=== PATIENT | female | born 1995 | race Two or more races ===

== ENCOUNTER 2018-01-04 19:34 | Emergency (ER) | payer SELFPAY ==
[2018-01-04 20:12] LABS: Bilirubin Negative (Negative); Blood, Urine Trace (Negative); Clarity CLOUDY (Clear); Glucose, Urine (Dipstick) Negative (Negative); Leukocyte Large (Negative); Nitrite Negative (Negative); Protein, Urine (Dipstick) Negative (Neg-Trace)
[2018-01-04 20:15] LABS: Bacteria/HPF Rare-Few HPF (None Seen); Hyaline Casts/LPF 0-3 HYALINE CAST LPF (0-3 Hyaline); Pathc Cast-AUWi Flag 0.58 (0-2.49); RBC/HPF 0-3 HPF (0-3)
[2018-01-04 20:18] LABS: Yeast-AUWi Flag 74.7 (0-25.0)
[2018-01-04 20:20] LABS: #Basophils 0.1 thou/uL (0.0-0.2); #Eosinphils 0.1 thou/uL (0.0-0.7); #Lymphocytes 2.2 thou/uL (1.20-3.40); #Monocytes 0.7 thou/uL (0.11-0.59); #Neutrophils 4.8 thou/uL (1.40-6.50); %Basophils 0.6 % (0.0-1.0); %Eosinophils 0.9 % (0.0-10.0); %Lymphocytes 28.5 % (28.0-48.0); %Monocytes 8.8 % (0.0-4.0); %Neutrophils 61.1 % (31.0-61.0); Hemoglobin 12.8 g/dL (12.0-16.0); Mean Corpuscular HGB CONC 34.2 g/dL (32.0-36.0); Mean Corpuscular Hemoglobin 29.6 pg (25.0-35.0); Mean Corpuscular Volume 86.6 fL (78.0-98.0); Mean Platelet Volume 5.8 fL (7.4-10.4); Platelet Count 325 thou/uL (130-400); RBC Distribution Width 11.4 % (11.5-14.5); Red Blood Cell (RBC) Count 4.32 mill/uL (4.00-5.20); White Blood Cell (WBC) Count 7.8 thou/uL (4.8-10.8)
[2018-01-04 20:30] LABS: Yeast-All Forms 1+ HPF (None Seen)
--- NOTE | 2018-01-04 22:35 | ULT ---
PELVIC ULTRASOUND: 01/04/18 Endovaginal ultrasound of pelvis performed. INDICATION: Left pelvic pain. Spotting. Positive test. The uterus has a normal appearance. No evidence of intrauterine gestation. The endometrial stripe is upper normal measured at 1.5 cm. Both ovaries are identified and appear unremarkable with normal appe aring follicles. Color doppler and spectral analysis demonstrates blood flow to both ovaries. There is an elongated echogenic structure in the left adnexa adjacent to the ovary which could repres ent prominent fallopian tube or mass. This measures 1 to 2 cm. There is free fluid in the cul-de-sac with low level echoes which could represent blood. IMPRESSION: Abnormal echogenicity in the left adnexa with free fluid/blood in the cul-de-sac. Ectopic i s the primary concern and should be excluded. POS: [facility]
--- NOTE | 2018-01-05 05:16 | CON ---
DATE OF ENCOUNTER: 01/04/2018 REFERRING PHYSICIAN: Dr. Tl Recio. CHIEF COMPLAINT: Vaginal bleeding and abdominal pain. HISTORY OF PRESENT ILLNESS: Patient is a 22-year-old female who presented to the emergency room toda y with an intrauterine at approximately 6 weeks by LMP with vaginal spotting. She reports earlier today, she has some left-sided pelvic pain that spontaneously resolved prior to presenting to the emergency room. Patient reports that her bleeding was most noticeable with wiping. Patient den ies fever, headache, chest pain, shortness of breath, nausea, vomiting, diarrhea, constipation. She denies any new rashes, hip problems, knee problems, muscle weakness. She denies urinary urgency or f requency or discharge or odor vaginally. PAST MEDICAL HISTORY: Negative. PAST SURGICAL HISTORY: Negative. SOCIAL HISTORY: Denies alcohol or drug use. She does report history of smoking about 1 pack every 3 days but quit smoking when she found out she was . ALLERGIES: No known drug allergies. MEDICATIONS: None. REVIEW OF SYSTEMS: Per HPI. PHYSICAL EXAMINATION: VITAL SIGNS: Blood pressure is 100/59, pulse of 86, respiratory rate 18, temperature 98.7, satting 9 9% on room air. GENERAL: She appears to be in no acute distress. She is alert and oriented, cooperative and pleasan t to interact with. HEAD: Normocephalic, atraumatic. LUNGS: Clear to auscultation bilaterally. HEART: Regular rate and rhythm. ABDOMEN: Soft, nontender to light and deep palpation. EXTREMITIES: Nontender, nonedematous. PELVIC: Per ER physician reports a moderate amount of junk yellow-green discharge, friable vaginal t issue, closed cervix. A small amount of dark blood. No cervical or adnexal tenderness. LABORATORY DATA: Patient has a white blood cell count of 7.8, hemoglobin 12.8, hematocrit 37.4, plat elets 325,000, quant was 364. UA shows trace blood, negative ketone, negative nitrite, large leukocy te esterase, negative red blood cells, 11-20 white blood cells, 4-6 squamous cells, rare to few bacte jeffrey, and 1+ yeast. REFUELER-3 shows positive for Gardnerella and for Hiwot, negative for Trichomonas. Ultrasound reports abnormal echogenicity in the left adnexa with free fluid or blood in the cul-de-sa c, ectopic pregnancies primary concern should be excluded. ASSESSMENT AND PLAN: Patient is a 22-year-old female G1, P0 with an intrauterine approxima tely 6 weeks' gestation with a quant of 352, presenting for vaginal spotting. Patient does have a ye ast infection and bacterial vaginosis with minimal bleeding in the vaginal vault and friable vaginal tissue. Patient is not having any concerning symptomatology, i.e., no abdominal or pelvic pain. Her hemoglobin is stable. Findings have been shared with the patient and patient has been recommended t o return on Saturday evening for a repeat quantitative HCG or to return sooner should she begin to expe rience abdominal pain. At this point, it is unclear whether the patient has normal or abnormal pregn pastor whether she has an ectopic or intrauterine or has a threatened miscarriage. We stressed the importance of close followup and for the importance of repeat labs on Saturday. Latisha starr has expressed understanding. She understands the possibility of having ectopic and with an absence of symptoms, patient is comfortable going home with the current plan.
[2018-01-06 00:02] LABS: Chlamydia by PCR Not Detected (NotDetected); GC by PCR Not Detected (NotDetected)
== END 2018-01-04 23:18 | disposition home or self-care (01) ==
LOC: ERS 19:34
DX: O20.0 Threatened abortion (principal); Z3A.01 Less than 8 weeks gestation of pregnancy
CPT/HCPCS: 36415; 76856; 81003; 81015; 84702; 85025; 86900; 86901; 87480; 87491; 87510; 87591; 87660

== ENCOUNTER 2018-01-06 19:28 | Emergency (ER) | payer SELFPAY | END 2018-01-06 21:57 | disposition home or self-care (01) | LOC: ERS 19:28 | DX: O03.4 Incomplete spontaneous abortion without complication (principal); Z71.6 Tobacco abuse counseling; Z87.891 Personal history of nicotine dependence; Z79.899 Other long term (current) drug therapy | CPT/HCPCS: 36415; 84702; 99406 ==

== ENCOUNTER 2018-06-26 13:04 | Outpatient (CLI) | payer OTHER ==
--- NOTE | 2018-06-26 15:35 | ULT ---
OBSTETRIC SONOGRAM TRANSABDOMINAL IMAGING WITH DUPLEX EVALUATION: HISTORY: First-trimester . evaluation. FINDINGS: Intrauterine gestational sac contains a yolk sac and pole. Measurements correlate with 10 week s 4 days gestational age giving an estimated date of delivery of 01/18/2019. Urinary bladder is unrema rkable. Minimal free fluid in the dependent portion of the pelvis. A 3.0 cm dominant follicle arise s from the left ovary. Right ovary not well visualized. Good color and spectral Doppler flow in the left ovary. heart motion demonstrated at 178 b.p.m. IMPRESSION: Single viable intrauterine gestation with estimated gestational age based on today's sonogram of 11 w eeks 0 days. POS: [facility]
== END 2018-06-26 13:05 | disposition home or self-care (01) ==
LOC: SCSULT 13:04
PROVIDERS: ATTEND Obstetrics & Gynecology
DX: Z34.01 Encounter for supervision of normal first pregnancy, first trimester (principal); Z3A.11 11 weeks gestation of pregnancy
CPT/HCPCS: 76856; 93976

== ENCOUNTER 2018-09-03 08:30 | Outpatient (CLI) | payer OTHER ==
--- NOTE | 2018-09-03 10:58 | ULT ---
OB ULTRASOUND: HISTORY: anatomy. FINDINGS: A single live intrauterine gestation is seen with measurements corresponding to an estimated gestatio nal age of 21 weeks 1 day and PHIL at 01/13/2019. The estimated weight measures 384 gm or 14 ounc es. This corresponds to a 46th percentile by Hadlock criteria. measurements are as follows: BPD 5.18 cm, 21 weeks 5 days HC 18.50 cm, 20 weeks 6 days AC 16.06 cm, 21 weeks 2 days FL 3.34 cm, 20 weeks 4 days The heart rate measures 138 b.p.m. Placenta is anteriorly located without evidence of placenta previa. LISE measures 11.4 cm. A 3-vessel cord, cord insertion, kidneys, bladder, stomach, 4-chamber heart, lateral ventricles , cerebellum, spine, lips/nose, upper and lower extremities are visualized. No definite anomal ies are seen. The cervical length measures 3.8 cm. IMPRESSION: Single live intrauterine of 21 weeks 1 day estimated gestational age and estimated date of delivery at 01/13/2019. POS: [facility]
== END 2018-09-03 08:31 | disposition home or self-care (01) ==
LOC: BICULT 08:30
PROVIDERS: ATTEND Nurse Practitioner
DX: Z34.02 Encounter for supervision of normal first pregnancy, second trimester (principal); Z3A.21 21 weeks gestation of pregnancy
CPT/HCPCS: 76805

== ENCOUNTER 2018-11-28 07:52 | Outpatient (CLI) | payer OTHER ==
--- NOTE | 2018-11-28 10:22 | ULT ---
OBSTETRICAL ULTRASOUND WITH UMBILICAL ARTERY DOPPLER: TECHNIQUE: Butcher scale, color flow, and spectral Doppler images were obtained of the pelvis, intrauterine gestati on, and umbilical artery. COMPARISON: Prior study dated 09/03/2018. FINDINGS: There is a single live intrauterine gestation in cephalic presentation. The placenta is anterior wit hout previa. The cardiac activity is noted at 131 b.p.m. LISE noted at 12.5 cm/s. Evaluation of anatomy is limited due to the advanced gestational age and size of the fetus. Vi sualized aspects of the heart, stomach, diaphragm, cord insertion, bladder, extremities, 3-vess el cord, and head appear within normal limits. Cervical length was 3.54 cm. The biparietal diameter measured 8.7 cm giving an estimated gestational age of 35 weeks and 1 day (88 th percentile). Head circumference measures 31.66 cm giving an estimated gestational age of 35 weeks and 1 day (69th percentile). The abdominal circumference measures 31.32 cm giving an estimated gestational age of 35 weeks and 2 d ays (93rd percentile). Femoral length was 6.7 cm giving an estimated gestational age of 34 weeks and 3 days (68th percentile ). Estimated weight is 2584 gm (88th percentile). The visualized umbilical artery segment at the level of the placenta had a peak systolic velocity of 60.8 cm/s and a low resistant waveform. The resistive waveform. The resistive index is 0.42. The s ystolic diastolic ratio was 1.73. Mid umbilical artery had a peak systolic velocity of 68.9 cm/s wit h a low resistive waveform and a resistive index of 0.58 and a systolic/diastolic ratio of 2.39. The umbilical artery at the cord insertion had a peak systolic velocity of 83.3 cm/s with a resistive in dex of 0.62 and a systolic/diastolic ratio of 2.66. The average gestational age by ultrasound is 35 weeks and 1 day, estimated due date of 01/01/2019. Th e clinical age is 33 weeks and 3 days, estimated due date os 01/13/2019. IMPRESSION: 1. Single live intrauterine gestation with size and dates as above. 2. The umbilical artery Doppler evaluation demonstrated low resistance waveform. POS: [facility]
== END 2018-11-28 07:53 | disposition home or self-care (01) ==
LOC: SCSULT 07:52
PROVIDERS: ATTEND Family Medicine
DX: O24.410 Gestational diabetes mellitus in pregnancy, diet controlled (principal); Z3A.35 35 weeks gestation of pregnancy
CPT/HCPCS: 76805; 93976

== ENCOUNTER 2019-01-11 19:19 | Inpatient (IN) | payer OTHER ==
[~2019-01-11 19:19] MED LIST: Bupivacaine HCl 0.5%/Epinephrine 1:200,000/PF 30 ml Vial ONE; ePHEDrine/0.9% NaCl/PF SYRINGE 50 mg/10 ml ONE
[2019-01-11] MEDS ORDERED: Carboprost 250 MCG/ML AMP IM PRN (19:35)
[2019-01-11] MEDS ORDERED: NS w/ Oxytocin 10 units 500 ML IV SCH ×2 (19:35)
[2019-01-11] MEDS ORDERED: Diphenoxylate HCl/Atropine Tablet PO PRN (19:35)
[2019-01-11] MEDS ORDERED: Methylergonovine 0.2 MG/ML VIAL IM PRN (19:35)
[2019-01-11] MEDS ORDERED: hydrALAZINE 20 MG/ML VIAL SLOW IVP PRN (19:35)
[2019-01-11] MEDS ORDERED: NS / Oxytocin 40 units/1000ml 1,000 ML IV PRN (19:35)
[2019-01-11] MEDS ORDERED: Ibuprofen 800 MG TAB PO PRN (19:35)
[2019-01-11] MEDS ORDERED: Lidocaine 1% (PF) 30 ML VIAL SC PRN (19:35)
[2019-01-11] MEDS ORDERED: HYDROcodone/Acetaminophen 5/325 mg Tablet PO PRN (19:35)
[2019-01-11] MEDS ORDERED: Promethazine HCl 25 MG/ML VIAL IM PRN (19:35)
[2019-01-11] MEDS ORDERED: Ondansetron PF 4 MG/2 ML Vial IVP PRN (19:35)
[2019-01-11] MEDS ORDERED: Misoprostol 200 MCG TAB PR PRN (19:35)
[2019-01-11 19:55] VITALS: BMI 39.2
[2019-01-11] MEDS ORDERED: Penicillin G Potassium 5 MILL.UNITS in Sodium Chloride 0.9% 100 ML IVPB SCH (20:15)
[2019-01-11 20:33] LABS: Hemoglobin 11.5 g/dL (12.0-16.0); Mean Corpuscular HGB CONC 34.4 g/dL (32.0-36.0); Mean Corpuscular Hemoglobin 28.8 pg (27.0-31.0); Mean Corpuscular Volume 83.7 fL (78.0-98.0); Mean Platelet Volume 6.1 fL (7.4-10.4); Platelet Count 342 thou/uL (130-400); RBC Distribution Width 13.7 % (11.5-14.5); White Blood Cell (WBC) Count 11.6 thou/uL (4.8-10.8)
[2019-01-11] MEDS: Lactated Ringer's 1,000 ML IV SCH (20:39)
[2019-01-11] MEDS: Misoprostol 100 MCG TAB PO SCH (20:39)
[2019-01-11] MEDS ORDERED: Bupivacaine/Epinephrine 0.25% 30 ML VIAL ONE (21:00)
[2019-01-11 21:03] LABS: Syphilis Antibody Nonreactive (Nonreactive); Syphilis Antibody Index 0.03 S/CO (<1.00 Non-Reactive)
[2019-01-12 01:18] LABS: HBSAg Index 0.13 S/CO (0-0.99); Hep B Surf Ag Non-Reactive S/CO (NonReactive)
[2019-01-12] MEDS: Misoprostol 100 MCG TAB PO SCH ×4 (02:00→12:43)
[2019-01-12] MEDS ORDERED: Misoprostol 100 MCG TAB ONE ×3 (02:04→12:41)
[2019-01-12] MEDS ORDERED: Ondansetron PF 4 MG/2 ML Vial ONE (04:17)
[2019-01-12] MEDS ORDERED: Butorphanol Tartrate 1 MG/ML VIAL ONE ×3 (04:18→16:59)
[2019-01-12] MEDS: Butorphanol Tartrate 1 MG/ML VIAL SLOW IVP PRN ×3 (04:20→17:00)
[2019-01-12] MEDS: Lactated Ringer's 1,000 ML IV SCH ×2 (04:24→16:18)
[2019-01-12] MEDS: Penicillin G 2.5 MILL.units 2.5 MILL.UNITS in Premix Bag 1 BAG IVPB SCH ×4 (07:39→20:41)
[2019-01-12] MEDS ORDERED: Penicillin G 2.5 MILL.units 0 ML ONE (11:29)
[2019-01-12] MEDS ORDERED: Penicillin G 2.5 MILL.units 50 ML ONE (16:15)
[2019-01-12] MEDS ORDERED: Diphenoxylate HCl/Atropine Tablet PO PRN (19:13)
[2019-01-12] MEDS ORDERED: hydrALAZINE 20 MG/ML VIAL SLOW IVP PRN (19:13)
[2019-01-12] MEDS ORDERED: Butorphanol Tartrate 1 MG/ML VIAL SLOW IVP PRN (19:13)
[2019-01-12] MEDS ORDERED: Carboprost 250 MCG/ML AMP IM PRN (19:13)
[2019-01-12] MEDS ORDERED: HYDROcodone/Acetaminophen 5/325 mg Tablet PO PRN (19:14)
[2019-01-12] MEDS ORDERED: Misoprostol 200 MCG TAB PR PRN (19:14)
[2019-01-12] MEDS ORDERED: Methylergonovine 0.2 MG/ML VIAL IM PRN (19:14)
[2019-01-12] MEDS ORDERED: Ibuprofen 800 MG TAB PO PRN (19:14)
[2019-01-12] MEDS ORDERED: Lidocaine 1% (PF) 30 ML VIAL SC PRN (19:14)
[2019-01-12] MEDS ORDERED: NS w/ Oxytocin 10 units 500 ML IV SCH (19:15)
[2019-01-12] MEDS ORDERED: NS / Oxytocin 40 units/1000ml 1,000 ML IV PRN (19:15)
[2019-01-12] MEDS ORDERED: Ondansetron PF 4 MG/2 ML Vial IVP PRN ×2 (19:15→20:39)
[2019-01-12] MEDS ORDERED: Promethazine HCl 25 MG/ML VIAL IM PRN ×2 (19:16→20:39)
[2019-01-12] MEDS ORDERED: Fentanyl 4 mcg/Bup 0.1% Cadd 100 ML ONE (19:34)
[2019-01-12] MEDS ORDERED: Naloxone HCl 0.4 mg/ml Vial IVP PRN ×2 (20:39)
[2019-01-12] MEDS ORDERED: ePHEDrine/0.9% NaCl/PF SYRINGE 50 mg/10 ml SLOW IVP PRN (20:39)
[2019-01-12] MEDS ORDERED: Lactated Ringer's 500 ML IV PRN (20:39)
[2019-01-12] MEDS ORDERED: Acetaminophen 325 MG TAB PO PRN (20:39)
[2019-01-12] MEDS ORDERED: diphenhydrAMINE 50 MG/ML VIAL IVP PRN (20:39)
[2019-01-12] MEDS ORDERED: Communication Order-Pharmacy FS SCH (20:45)
[2019-01-12] MEDS: Fentanyl 4 mcg/Bupivacaine 0.1% Cassette 100 ML EPIDURAL SCH (20:57)
[2019-01-13] MEDS: NS w/ Oxytocin 10 units 500 ML IV SCH (00:11)
[2019-01-13] MEDS: Penicillin G 2.5 MILL.units 2.5 MILL.UNITS in Premix Bag 1 BAG IVPB SCH ×5 (00:47→12:19)
[2019-01-13] MEDS: Lactated Ringer's 1,000 ML IV SCH ×3 (03:53→23:40)
[2019-01-13] MEDS ORDERED: Fentanyl 4 mcg/Bup 0.1% Cadd 100 ML ONE ×3 (04:43→22:34)
[2019-01-13] MEDS: Fentanyl 4 mcg/Bupivacaine 0.1% Cassette 100 ML EPIDURAL SCH ×2 (04:45→22:44)
[2019-01-13] MEDS ORDERED: Ampicillin 2 GM in Sodium Chloride 0.9% 100 ML IVPB SCH (15:30)
[2019-01-13] MEDS ORDERED: Gentamicin Sulfate 80 MG in Premix Bag 1 BAG IVPB SCH (15:45)
[2019-01-13] MEDS ORDERED: Azithromycin 500 MG VIAL ONE (16:11)
[2019-01-13] MEDS ORDERED: ePHEDrine/0.9% NaCl/PF SYRINGE 50 mg/10 ml ONE (16:54)
[2019-01-13] MEDS ORDERED: Lidocaine 2% 10 ML INJ ONE ×2 (16:54→17:03)
[2019-01-13] MEDS ORDERED: Oxytocin 10 UNITS/ML VIAL ONE ×2 (16:54→17:31)
[2019-01-13] MEDS ORDERED: PHENYLEPHRINE-NS 100 MCG/ML 10 ML SYRINGE ONE ×3 (16:54→18:05)
[2019-01-13] MEDS ORDERED: Ketorolac Tromethamine 30 MG/ML VIAL ONE (16:54)
[2019-01-13] MEDS ORDERED: Ondansetron PF 4 MG/2 ML Vial ONE ×2 (16:54→17:55)
[2019-01-13] MEDS ORDERED: Methylergonovine 0.2 MG/ML VIAL ONE (17:13)
[2019-01-13] MEDS ORDERED: Carboprost 250 MCG/ML AMP ONE (17:16)
[2019-01-13] MEDS ORDERED: Misoprostol 200 MCG TAB ONE (17:22)
[2019-01-13] MEDS ORDERED: Tranexamic Acid 1,000 MG/10 ML VIAL ONE (17:23)
[2019-01-13] MEDS ORDERED: MORPHINE 5 MG/10 ML PF VIAL ONE (17:35)
[2019-01-13] MEDS ORDERED: Lidocaine 2% PF 5 ML VIAL ONE (17:55)
[2019-01-13] MEDS: Tranexamic Acid 1,000 MG/10 ML VIAL ONE ×2 (18:23→19:17)
[2019-01-13] MEDS ORDERED: Tranexamic Acid 1,000 MG in Sodium Chloride 0.9% 250 ML 250 ML IVPB SCH (18:45)
[2019-01-13] MEDS ORDERED: metroNIDAZOLE 500 MG in Premix Bag 1 BAG IVPB SCH (18:50)
[2019-01-13] MEDS ORDERED: Ondansetron HCl/PF 4 MG/2 ML Vial IVP PRN (19:11)
[2019-01-13] MEDS ORDERED: L&D-Morphine 4 MG/ML VIAL SLOW IVP PRN (19:11)
[2019-01-13] MEDS ORDERED: Meperidine HCl/PF 25 MG/ML VIAL SLOW IVP PRN (19:11)
[2019-01-13] MEDS ORDERED: HYDROmorphone 2 MG/ML VIAL SLOW IVP PRN (19:11)
[2019-01-13] MEDS ORDERED: Ketorolac Tromethamine 30 MG/ML VIAL IVP SCH (19:15)
[2019-01-13] MEDS ORDERED: Meperidine HCl/PF 25 MG/ML VIAL ONE (19:22)
[2019-01-13] MEDS ORDERED: Ketorolac Tromethamine 30 MG/ML VIAL IVP PRN (19:35)
[2019-01-13] MEDS ORDERED: Naloxone HCl 0.4 mg/ml Vial IVP PRN ×2 (19:35)
[2019-01-13] MEDS ORDERED: Naloxone HCl 0.4 mg/ml Vial IV PRN (19:35)
[2019-01-13] MEDS ORDERED: Ondansetron PF 4 MG/2 ML Vial IVP PRN ×2 (19:35→20:35)
[2019-01-13] MEDS ORDERED: diphenhydrAMINE 50 MG/ML VIAL IVP PRN (19:35)
[2019-01-13] MEDS ORDERED: Promethazine HCl 25 MG/ML VIAL IM PRN (19:35)
[2019-01-13] MEDS ORDERED: Promethazine HCl 25 MG SUPP PR PRN (19:35)
[2019-01-13] MEDS ORDERED: Communication Order-Pharmacy FS SCH (19:45)
[2019-01-13] MEDS ORDERED: HYDROcodone/Acetaminophen 5/325 mg Tablet PO PRN (20:35)
[2019-01-13] MEDS ORDERED: Meperidine HCl/PF 25 MG/ML VIAL IM PRN (20:35)
[2019-01-13] MEDS ORDERED: Zolpidem Tartrate 5 MG TAB PO PRN (20:35)
[2019-01-13] MEDS ORDERED: Bisacodyl 10 MG SUPP PR PRN (20:35)
[2019-01-13] MEDS ORDERED: diphenhydrAMINE 25 MG CAP PO PRN (20:35)
[2019-01-13] MEDS ORDERED: hydrALAZINE 20 MG/ML VIAL SLOW IVP PRN (20:35)
[2019-01-13] MEDS ORDERED: Adacel (T-DAP) 0.5 ML SYRINGE IM ONE (20:35)
[2019-01-13] MEDS ORDERED: NS / Oxytocin 40 units/1000ml 1,000 ML IV SCH (20:35)
[2019-01-13] MEDS: Docusate Calcium (SURFAK) 240 MG CAP PO SCH (21:49)
[2019-01-14 00:33] LABS: Hemoglobin 9.9 g/dL (12.0-16.0)
[2019-01-14] MEDS: CEFAZOLIN 2 GM in Premix Bag 1 BAG IVPB SCH ×3 (01:04→16:50)
[2019-01-14] MEDS: Ibuprofen 800 MG TAB PO SCH ×4 (02:51→21:50)
[2019-01-14] MEDS: metroNIDAZOLE 500 MG in Premix Bag 1 BAG IVPB SCH ×4 (02:51→21:51)
--- NOTE | 2019-01-14 03:43 | OP ---
DATE OF PROCEDURE: 01/13/2019 PREOPERATIVE DIAGNOSES: 1. 39 weeks . 2. Gestational diabetes mellitus. 3. Arrest of dilation. 4. Intrapartum fever. POSTOPERATIVE DIAGNOSES: 1. 39 weeks . 2. Gestational diabetes mellitus. 3. Arrest of dilation. 4. Intrapartum fever. 5. macrosomia. 6. Atonic hemorrhage. PROCEDURE PERFORMED: Primary low cervical transverse . ASSEMBLY ADJUSTER: Percy Briscoe DO DESCRIPTION OF PROCEDURE: After informed consent was obtained from the patient , she was taken to the operating room, where her epidural anesthesia was re-dosed. She was prepped and draped in the usual sterile fashion. After adequate anesthesia was confirmed, a Pfannenstiel incision was created with a #10 scalpel blade and carried down to the fascia. The fascia was nicked in the midline. Skin bleeders were cauterized with the Bovie. Fascial incision was extended transversely with Barney scissors. The superior fascial segment was grasped with Marilou's and elevated and the underlying rectus muscles were dissected free, first bluntly and then sharply. This was repeated with the inferior fascial segment. The rectus muscles were then divided in the midline bluntly. The peritoneum was entered bluntly. Bladder blade was inserted. The uterus was entered in a low-transverse fashion with a clean # 10 scalpel blade. Moderate meconium stained amniotic fluid was encountered. The vertex delivered onto the operative field followed by the remainder of the in an atraumatic manner. The oropharynx and nares were bulb suctioned. Cord was clamped x2 and a vigorous male was handed to the staff in attendance. Cord blood was obtained. The placenta was expressed and removed with traction. The uterus was exteriorized and freed of clots and debris. The uterus was noted to be extremely atonic following delivery and Methergine x1, Hemabate x 1, and Cytotec 800 mcg x1 were administered in rapid succession. TXA was also given. Uterine tone was still poor after administration of the above medications and Bakri tamponade balloon was placed and inflated with 360 mL of normal saline, as the uterus was repaired with a running locking suture of 0 Vicryl in a single full-thickness layer. Three interrupted [id number] sutures also with 0 Vicryl were placed along the incision line for additional hemostasis, which was observed. The uterus was returned to the abdomen. Hysterotomy was again inspected and found to be hemostatic. There was little to no output from the drainage port of the Bakri balloon and so, the fascia was repaired with a running suture of zero PDS. The skin was reapproximated with three interrupted sutures of 3-0 Vicryl in the subdermal layer followed by skin lucio. Pale yellow urine was noted to be draining in the Peterson. She was taken to recovery room in stable condition. to the nursery in stable condition. FINDINGS: Viable male infant, 9 pounds 4 ounces. Apgars 9 and 9 at 1 and 5 minute respectively. SPECIMENS: Placenta to pathology. COMPLICATIONS: Atonic hemorrhage resolved with administration of Methergine x1, Hemabate x2, Cytotec x1, and TXA x2 with Bakri tamponade balloon placed. ESTIMATED BLOOD LOSS: 1200 mL. Job ID: [id number] MTDD
[2019-01-14] MEDS ORDERED: Fentanyl 4 mcg/Bup 0.1% Cadd 100 ML ONE (06:04)
[2019-01-14 06:40] LABS: Mean Corpuscular Hemoglobin 28.4 pg (27.0-31.0); Mean Corpuscular Volume 86.2 fL (78.0-98.0); Mean Platelet Volume 6.2 fL (7.4-10.4); Platelet Count 290 thou/uL (130-400); RBC Distribution Width 13.9 % (11.5-14.5); Red Blood Cell (RBC) Count 3.51 mill/uL (4.20-5.40)
[2019-01-14] MEDS: Fentanyl 4 mcg/Bupivacaine 0.1% Cassette 100 ML EPIDURAL SCH (07:06)
[2019-01-14] MEDS: Lactated Ringer's 1,000 ML IV SCH ×2 (08:22→20:36)
[2019-01-14] MEDS: HYDROcodone/Acetaminophen 5/325 mg Tablet PO PRN ×3 (12:50→20:57)
[2019-01-14] MEDS: Docusate Calcium (SURFAK) 240 MG CAP PO SCH ×2 (12:54→20:57)
[2019-01-14] MEDS: Prenatal Vitamin 1 TAB PO SCH (12:54)
[2019-01-14] MEDS: Penicillin G 2.5 MILL.units 2.5 MILL.UNITS in Premix Bag 1 BAG IVPB SCH (20:36)
[2019-01-14] MEDS: NS w/ Oxytocin 10 units 500 ML IV SCH (20:37)
[2019-01-15] MEDS: CEFAZOLIN 2 GM in Premix Bag 1 BAG IVPB SCH ×4 (00:55→23:52)
[2019-01-15] MEDS: HYDROcodone/Acetaminophen 5/325 mg Tablet PO PRN ×4 (04:06→20:46)
[2019-01-15] MEDS: Ibuprofen 800 MG TAB PO SCH ×3 (05:38→20:48)
[2019-01-15] MEDS: metroNIDAZOLE 500 MG in Premix Bag 1 BAG IVPB SCH ×3 (05:39→20:47)
[2019-01-15] MEDS: Prenatal Vitamin 1 TAB PO SCH (08:39)
[2019-01-15] MEDS: Docusate Calcium (SURFAK) 240 MG CAP PO SCH ×2 (08:39→20:47)
[2019-01-15] MEDS ORDERED: Sodium Chloride 0.9% 10 ML ONE (16:23)
[2019-01-15] MEDS ORDERED: Lactated Ringer's 1,000 ML IV SCH (16:30)
[2019-01-16] MEDS: metroNIDAZOLE 500 MG in Premix Bag 1 BAG IVPB SCH ×2 (06:32→13:22)
[2019-01-16] MEDS: Ibuprofen 800 MG TAB PO SCH ×2 (06:32→13:22)
[2019-01-16] MEDS: Prenatal Vitamin 1 TAB PO SCH (08:36)
[2019-01-16] MEDS: Docusate Calcium (SURFAK) 240 MG CAP PO SCH (08:37)
[2019-01-16] MEDS: CEFAZOLIN 2 GM in Premix Bag 1 BAG IVPB SCH ×2 (09:59→17:09)
[2019-01-16 16:49] VITALS: BP 117/63; TEMP 98.9
--- NOTE | 2019-01-19 05:03 | PQF ---
JESSENIA ARMENDARIZ ROLAND R MD [id number] CLINICAL DOCUMENTATION CLARIFICATION FORM: POST DISCHARGE Addendum to original discharge summary date: ____ Late entry note date: 01/19/19 DATE:01-19-2019 ATTN:Nik Tenorio Please exercise your independent, professional judgment in responding to the clarification form. Clinical indicators are provided on the bottom of this form for your review Final Diagnosis on the Pathology report: Placenta: Mild acute chorioamionitis; grade 1 Clarification of Pathology report: Please check appropriate box(s): [ X ] Agree w the pathology finding of:____chorioamnionitis ___ [ ] Other explanation of pathology findings (please specify) [ ] Other diagnosis please specify: [ ] Unable to determine For continuity of documentation, please document condition throughout progress notes and discharge summary. Thank You. CLINICAL INDICATORS: 01/[address] Franklin Arrest of dilatation 01/[address] Franklin Intrapartum Fever 01/15 PTH Surgical Specimen: Mild acute chorioamionitis; grade 1 RISK FACTORS: HP 01/11 Dr. Franklin-GBS + HP 01/11 Dr. Franklin- GDM diet Controlled HP 01/11 Dr. Franklin- IUP 39 weeks HP 01/11 Dr. Franklin: AROM HP 01/11 Dr. Franklin- macrosomia OP note Dr. Franklin- Primary CS TREATMENTS: JUL 19-Pen G 2.5 ML IV JUL 19- IV Fluids JUL 19-Ampicillin 2 gm IV JUL 19- Gentamycin Sulfate 1 bag IV JUL 19- Zithromax 500 mg (This form is maintained as a part of the permanent medical record) 2014 [employer]. All Rights Reserved Delores [email or web address] [not provided] MTDD
== END 2019-01-16 17:33 | disposition home or self-care (01) | DRG 786 ==
LOC: L&D 19:19 → UNDODISIN 01-12 01:45 → L&D-LIB 01-13 20:59 → 3SW 01-14 09:38
PROVIDERS: ADMIT Family Medicine; ATTEND Family Medicine
PROC: 10D00Z1 Extraction of Products of Conception, Low, Open Approach (ICD-10-PCS; principal; 2019-01-13)
PROC: 0W3R0ZZ Control Bleeding in Genitourinary Tract, Open Approach (ICD-10-PCS; 2019-01-13)
PROC: 10907ZC Drainage of Amniotic Fluid, Therapeutic from Products of Conception, Via Natural or Artificial Opening (ICD-10-PCS; 2019-01-13)
PROC: 3E0P7VZ Introduction of Hormone into Female Reproductive, Via Natural or Artificial Opening (ICD-10-PCS; 2019-01-13)
DX: O24.420 Gestational diabetes mellitus in childbirth, diet controlled (principal); O41.1230 Chorioamnionitis, third trimester, not applicable or unspecified; O72.1 Other immediate postpartum hemorrhage; O76 Abnormality in fetal heart rate and rhythm complicating labor and delivery; O36.63X0 Maternal care for excessive fetal growth, third trimester, not applicable or unspecified; O62.1 Secondary uterine inertia; Z3A.39 39 weeks gestation of pregnancy; Z37.0 Single live birth; O77.0 Labor and delivery complicated by meconium in amniotic fluid; O99.824 Streptococcus B carrier state complicating childbirth; O99.02 Anemia complicating childbirth; D64.9 Anemia, unspecified
CPT/HCPCS: 36415; 36416; 51702; 85014; 85018; 85027; 86780; 86850; 86900; 86901; 87340; 88307; J0290; J0456; J0595; J0670; J0690; J1580; J1885; J2001; J2175; J2210; J2274; J2405; J2540; J2590; J3490

== ENCOUNTER 2020-04-13 11:43 | Day surgery (SDC) | payer OTHER ==
[2020-04-13 12:44] VITALS: BP 103/62; TEMP 98.4; BMI 37.0
[2020-04-13] MEDS ORDERED: hydrALAZINE 20 MG/ML VIAL SLOW IVP PRN (13:05)
--- NOTE | 2020-04-13 13:29 | ULT ---
LIMITED OBSTETRICAL ULTRASOUND FOR BIOPHYSICAL PROFILE INDICATION: Nonreactive NST TECHNIQUE: Grayscale, M-mode Doppler, color Doppler and spectral Doppler images were obtained. Biophy sical profile was submitted by the solar panel technician. Imaging is focused on the clinical indication. COMPARISON: No relevant prior studies available. GESTATION: Number of gestations: Single. Presentation: Vertex. heart rate: 147 bpm. Placental location: Anterior Previa: No evidence for previa. Cervical length: Cervix not well seen LISE: 9.5 cm. Biophysical profile: tone: 2 out of 2. breathin out of 2 movements: 2 out of 2 Amniotic fluid level: 2 out of 2 IMPRESSION: 1. Biophysical profile of 8 out of 8. 2. LISE 9.5 cm.
[2020-04-13 13:59] LABS: Hemoglobin A1c 5.4 % (4.0-6.0)
--- NOTE | 2020-04-13 14:46 | PRG ---
DATE OF SERVICE: 04/13/2020 OB Encounter PRIMARY OB: Dr. Nik Franklin. CHIEF COMPLAINT: Nonreactive NST. HISTORY OF PRESENT ILLNESS: The patient is a 25-year-old G3, P1 female with an intrauterine at 36 weeks and a day with a complicated by gestational diabetes. During her testing today, the patient was noted to have a nonreactive NST and was sent to Labor and Delivery for further evaluation. Here, the patient confirms that she has gestational diabetes. When asked if she had good blood sugar control, she said "somewhat." When asked what that meant, she reported that her blood sugars run up to the 200s about twice a week. When asked more specifically about her other meals, she reports her fasting blood sugars are in the 80s and 90s, that she does not check her lunch sugars very often as she is at work, but when she does, they tend to be in the upper 120s and she says that her evening meals tend to run between 140s and 160s usually with it running up to the 200s when she has heavy meal, which she does at least twice a week. She reports that her baby is having good movement now, who has placement of the heart tracing monitors. She denies fever, cough, headache, chest pain, shortness of breath, nausea, vomiting, diarrhea, constipation, hip problems, knee problems, muscle weakness. She denies vaginal bleeding. She denies any new rashes. She denies urinary urgency or frequency. She does report lower pelvic pain that is sharp, particular with active movement. PAST MEDICAL HISTORY: Anemia gestational diabetes. PAST SURGICAL HISTORY: She has had 1 prior . ALLERGIES: NO KNOWN DRUG ALLERGIES. MEDICATIONS: Iron and vitamins. SOCIAL HISTORY: She denies drug, alcohol, tobacco use. She does have a positive drug screen on her initial intake for . OB LABS: Blood type is A positive. Antibody screen is negative. She is rubella immune. Hepatitis B surface antigen is negative. RPR is nonreactive. HIV is negative. She has a sickle cell screen, it is negative. GC and chlamydia are negative. REVIEW OF SYSTEMS: Per history of present illness. PHYSICAL EXAMINATION: VITAL SIGNS: Blood pressure 103/62, respiratory rate of 18, temperature 98.4, and pulse of 85. GENERAL: She appears to be in no acute distress. She is alert, oriented, cooperative, and pleasant to interact with. HEAD: Normocephalic, atraumatic. LUNGS: Clear to auscultation bilaterally. HEART: Regular rate and rhythm. ABDOMEN: Gravid and soft. She does have some mild tenderness in her lower suprapubic area more laterally consistent with her positive review of systems. : Deferred. heart tracing shows fetus with a baseline in the 130s with moderate long-term variability, positive 15x15 accelerations, no decelerations. Biophysical profile was completed and reported 12/18. Tocometer showing contractions irregularly, not felt by the patient. LABORATORY DATA: A1c and fructosamine have been ordered, but not collected or resulted. ASSESSMENT AND PLAN: The patient is a 25-year-old multiparous female with an intrauterine at 36 weeks and a day, presenting for nonreactive NST. is complicated by gestational diabetes, that by report is not well controlled in her evening portion of the day. I have reviewed this report with Dr. Franklin, her primary OB, who has requested that she come in Saturday between 10 and 11 a.m. for diabetic education as he plans to place her on insulin with her meals. This information has been relayed to the patient, who has expressed the intention to go Saturday morning between 10 and 11 a.m. Once her A1c and fructosamine have been drawn, she will be discharged. Lab results will be forwarded to Dr. Franklin. Job ID: [id number]
== END 2020-04-13 13:50 | disposition home or self-care (01) ==
LOC: L&D/OP 11:43
PROVIDERS: ATTEND Family Medicine
DX: O24.419 Gestational diabetes mellitus in pregnancy, unspecified control (principal); O99.013 Anemia complicating pregnancy, third trimester; D64.9 Anemia, unspecified; O34.219 Maternal care for unspecified type scar from previous cesarean delivery; Z3A.36 36 weeks gestation of pregnancy
CPT/HCPCS: 36415; 76819; 82985; 83036; 99282

== ENCOUNTER 2020-04-29 07:39 | Outpatient (CLI) | payer OTHER ==
[2020-04-29 13:19] LABS: SARS-CoV-2 MS2 Positive; SARS-CoV-2 N Gene Negative; SARS-CoV-2 S Gene Negative; SARS-CoV-2 by NAA Not Detected (NotDetected); SARS-CoV-2 orf1ab Negative
== END 2020-04-29 07:40 | disposition home or self-care (01) ==
LOC: LABBT 07:39
PROVIDERS: ATTEND Family Medicine
DX: Z01.812 Encounter for preprocedural laboratory examination (principal); Z20.828 Contact with and (suspected) exposure to other viral communicable diseases
CPT/HCPCS: 87635; U0003

== ENCOUNTER 2020-05-02 05:42 | Inpatient (IN) | payer OTHER ==
[2020-05-02] MEDS ORDERED: Ondansetron PF 4 MG/2 ML Vial IVP PRN ×3 (06:18→09:49)
[2020-05-02] MEDS ORDERED: Lactated Ringer's 1,000 ML IV SCH (06:18)
[2020-05-02] MEDS ORDERED: Promethazine HCl 25 MG/ML VIAL IM PRN ×3 (06:18→09:49)
[2020-05-02] MEDS ORDERED: hydrALAZINE 20 MG/ML VIAL SLOW IVP PRN (06:18)
[2020-05-02] MEDS ORDERED: Famotidine/PF 20 mg/2ml Vial SLOW IVP PRN (06:18)
[2020-05-02] MEDS ORDERED: Azithromycin 500 MG in Sodium Chloride 0.9% 250 ML 250 ML IVPB SCH (06:18)
[2020-05-02] MEDS ORDERED: CEFAZOLIN 2 GM in Premix Bag 1 BAG IVPB SCH (06:18)
[2020-05-02] MEDS ORDERED: Bicitra 30 ML UDCUP PO PRN (06:18)
[2020-05-02 06:35] LABS: Hemoglobin 9.9 g/dL (12.0-16.0); Mean Corpuscular HGB CONC 32.5 g/dL (32.0-36.0); Mean Corpuscular Hemoglobin 25.8 pg (27.0-31.0); Mean Corpuscular Volume 79.3 fL (78.0-98.0); Mean Platelet Volume 5.9 fL (7.4-10.4); Platelet Count 435 thou/uL (130-400); Red Blood Cell (RBC) Count 3.84 mill/uL (4.20-5.40); White Blood Cell (WBC) Count 11.9 thou/uL (4.8-10.8)
[2020-05-02 06:43] VITALS: BMI 36.1
[2020-05-02] MEDS ORDERED: Morphine PF 10 MG/10 ML VIAL ONE (07:09)
[2020-05-02] MEDS ORDERED: ePHEDrine 50 MG/ML VIAL ONE (07:10)
[2020-05-02] MEDS ORDERED: PHENYLEPHRINE-NS 100 MCG/ML 10 ML SYRINGE ONE (07:10)
[2020-05-02] MEDS ORDERED: Oxytocin 10 UNITS/ML VIAL ONE (07:10)
[2020-05-02 07:15] LABS: Syphilis Antibody Nonreactive (Nonreactive); Syphilis Antibody Index 0.03 S/CO (<1.00 Non-Reactive)
[2020-05-02 07:16] LABS: HBSAg Index 0.13 S/CO (0-0.99); Hep B Surf Ag Non-Reactive S/CO (NonReactive)
[2020-05-02 07:38] LABS: ALT (SGPT) 14 U/L (8-55); AST (SGOT) 14 U/L (5-34); Albumin 3.3 g/dL (3.5-5.0); Alkaline Phosphatase 114 U/L (40-110); Anion Gap 14 mmol/L (10-20); BUN (Urea Nitrogen) 9 mg/dL (7.0-18.7); Bilirubin, Total 0.5 mg/dL (0.2-1.2); Calc. Creatinine Clearance 214 mL/min (70-130); Calcium 8.3 mg/dL (7.8-10.44); Carbon Dioxide 18 mmol/L (22-29); Chloride 108 mmol/L (98-107); Globulin 2.8 g/dL (2.4-3.5); Glucose 84 mg/dL (70-105); Potassium 4.1 mmol/L (3.5-5.1); Protein, Total 6.1 g/dL (6.0-8.3); Sodium 136 mmol/L (136-145)
[2020-05-02] MEDS ORDERED: Ondansetron PF 4 MG/2 ML Vial ONE (07:46)
[2020-05-02] MEDS ORDERED: Naloxone HCl 0.4 mg/ml Vial IV PRN (08:11)
[2020-05-02] MEDS ORDERED: Naloxone HCl 0.4 mg/ml Vial IVP PRN ×2 (08:11)
[2020-05-02] MEDS ORDERED: Promethazine HCl 25 MG SUPP PR PRN (08:11)
[2020-05-02] MEDS ORDERED: HYDROmorphone 2 MG/ML VIAL SLOW IVP PRN (08:11)
[2020-05-02] MEDS ORDERED: diphenhydrAMINE 50 MG/ML VIAL IVP PRN (08:11)
[2020-05-02] MEDS ORDERED: Meperidine HCl/PF 25 MG/ML VIAL SLOW IVP PRN (08:11)
[2020-05-02] MEDS ORDERED: Ondansetron HCl/PF 4 MG/2 ML Vial IVP PRN (08:11)
[2020-05-02] MEDS ORDERED: L&D-Morphine 4 MG/ML VIAL SLOW IVP PRN (08:11)
[2020-05-02] MEDS ORDERED: Communication Order-Pharmacy FS SCH (08:15)
[2020-05-02] MEDS ORDERED: Ketorolac Tromethamine 30 MG/ML VIAL IVP SCH ×2 (08:15→12:00)
--- NOTE | 2020-05-02 09:03 | PDOC.OPDEL ---
OB Operative/Delivery Note Delivery Dr/Surgeon: Nik Franklin MD Assist: Keyana Villanueva DO, PGY-2 Pre-Delivery Diagnosis: scheduled section Procedure/Post Delivery Dx: repeat low transverse CS Weeks gestation: 39 Anesthesia: spinal - Findings A Sex: female Weight: 3.617 kg - 1 min: 8 - 5 min: 9 - Additional Findings/Plan Placenta delivered: manual removal findings: low transverse hysterotomy without extension, normal tubes, normal ovaries, other (severe adhesions visualized and taken down during op) Estimated blood loss: 574 ML Compilations/Other Findings: Date of Procedure: 05/02/2020, 0800 Attending Primary Surgeon: Nik Franklin MD Resident Surgeon: Keyana Villanueva DO, PGY-2 Procedure: Repeat low transverse caesarean section Preoperative Diagnosis: 1)Term intrauterine 2)Previous x 1 3)A1GDM 4)Anemia 5)Hx of ectopic Postoperative Diagnosis: 1)Term intrauterine , now delivered 2)Previous x 2 3)A1GDM 4)Anemia 5)Hx of ectopic Anesthesia: spinal Indications: The patient is a 25 year old G3,P1011 female at 39 weeks gestation who presents for a repeat scheduled . Procedure in Detail: After risks, benefits, and alternatives were explained to the patient, she gave informed consent. Pre-operative antibiotics included Cefazolin 2 gram IV. The patient was taken to the operating room and spinal anesthesia was initiated. She was placed in the supine position with a left tilt and prepped and draped in usual sterile fashion. A Pfannenstiel incision was made with a scalpel and carried down to the level of the fascia which was sharply nicked. The fascial cut was extended bilaterally with [place] sissors. The inferior and superior edges of the cut fascial edges were elevated with Marilou clamps and the underlying rectus muscles were sharply and bluntly dissected free. The recti were divided digitally and retracted manually. The peritoneum was entered bluntly and retracted manually. Bladder blade was placed. A low transverse incision was made with the scalpel and the uterus was entered in the midline with the scalpel. Clear fluid was seen. The hysterotomy was extended manually. The infant was noted to be vertex and was easily delivered by fundal pressure. Mouth and nares were bulb suctioned. Cord clamped and cut and grossly normal female infant was handed to waiting nurse. Cord blood was obtained. Placenta was manually extracted, found to be intact with 3 vessel cord and discarded. A few severe adhesions on the uterus were then taken down using the bovie. The uterus was then externalized and the endometrium was curetted with a dry lap. The bladder blade was replaced and the uterus was closed with a running locking 1-Monocryl suture. Further adhesions were then taken down. Some bleeding was noted from this site and the uterus was repaired here with running non- locking 0-Vicryl suture. Some further oozing was noted so Flow-Seal was then placed. Following this hemostasis was noted. The abdomen was irrigated with saline and suctioned free of clots. The uterus was internalized and the hysterotomy was again noted to be hemostatic. The peritoneum was closed with running non-locking 3-0 Vicryl suture. The fascia was closed with a running non- locking PDS suture. The subcutaneous tissue was irrigated and there were no bleeders. The subcutaneous tissue was then closed with three simple interrupted 3-0 Vicryl suture. The skin was approximated with lucio and a pressure dressing was placed. All counts were correct. The patient tolerated the pr ocedure well and was taken to the recovery room in stable condition. Quantitative Blood Loss: 574 ml Complications: None Specimens: Cord blood sent to lab for blood type Findings: Grossly normal female infant with Apgars of 8 and 9. Grossly normal placenta with 3 vessel cord discarded. Drains: Peterson to gravity draining clear urine Post delivery plan: routine recovery
[2020-05-02] MEDS ORDERED: Meperidine HCl/PF 25 MG/ML VIAL ONE (09:41)
[2020-05-02] MEDS ORDERED: Ketorolac Tromethamine 30 MG/ML VIAL ONE (09:41)
[2020-05-02] MEDS: Ketorolac Tromethamine 30 MG/ML VIAL IVP PRN ×3 (09:42→22:02)
[2020-05-02] MEDS ORDERED: Bisacodyl 10 MG SUPP PR PRN (09:49)
[2020-05-02] MEDS ORDERED: Meperidine HCl/PF 25 MG/ML VIAL IM PRN (09:49)
[2020-05-02] MEDS ORDERED: HYDROcodone/Acetaminophen 5/325 mg Tablet PO PRN (09:49)
[2020-05-02] MEDS ORDERED: diphenhydrAMINE 25 MG CAP PO PRN (09:49)
[2020-05-02] MEDS ORDERED: NS / Oxytocin 40 units/1000ml 1,000 ML IV SCH (09:49)
[2020-05-02] MEDS ORDERED: Adacel (T-DAP) 0.5 ML SYRINGE IM ONE (09:49)
[2020-05-02] MEDS ORDERED: hydrALAZINE 20 MG/ML VIAL SLOW IVP SCH (09:49)
[2020-05-02] MEDS: Simethicone Chewable 80 MG TAB PO PRN ×2 (11:09→16:10)
[2020-05-02] MEDS ORDERED: Morphine 4 MG/ML VIAL SLOW IVP PRN (12:21)
[2020-05-02] MEDS ORDERED: Morphine 2 MG/ML VIAL SLOW IVP SCH (12:30)
[2020-05-02] MEDS ORDERED: Morphine 2 MG/ML VIAL SLOW IVP PRN (12:30)
[2020-05-02] MEDS: Docusate Calcium (SURFAK) 240 MG CAP PO SCH ×2 (13:06→23:58)
[2020-05-02] MEDS: Ferrous Sulfate 325 MG TAB PO SCH ×2 (13:06→23:58)
[2020-05-03] MEDS ORDERED: Sodium Chloride 0.9% 10 ML ONE (04:04)
[2020-05-03] MEDS: Ketorolac Tromethamine 30 MG/ML VIAL IVP PRN (04:09)
[2020-05-03] MEDS: Simethicone Chewable 80 MG TAB PO PRN (04:10)
[2020-05-03 06:48] LABS: Hemoglobin 8.7 g/dL (12.0-16.0); Mean Corpuscular HGB CONC 32.5 g/dL (32.0-36.0); Mean Corpuscular Hemoglobin 26.4 pg (27.0-31.0); Mean Corpuscular Volume 81.4 fL (78.0-98.0); Platelet Count 336 thou/uL (130-400); White Blood Cell (WBC) Count 13.3 thou/uL (4.8-10.8)
[2020-05-03] MEDS: Ferrous Sulfate 325 MG TAB PO SCH ×2 (08:26→22:33)
[2020-05-03] MEDS: Docusate Calcium (SURFAK) 240 MG CAP PO SCH ×2 (08:26→22:33)
[2020-05-03] MEDS: HYDROcodone/Acetaminophen 5/325 mg Tablet PO PRN ×2 (12:52→20:20)
[2020-05-03] MEDS: Ibuprofen 800 MG TAB PO SCH ×2 (14:56→22:32)
[2020-05-04] MEDS: Ibuprofen 800 MG TAB PO SCH ×2 (06:02→13:39)
[2020-05-04] MEDS: HYDROcodone/Acetaminophen 5/325 mg Tablet PO PRN ×2 (06:18→13:39)
[2020-05-04 07:27] VITALS: TEMP 97.9
[2020-05-04 08:09] VITALS: BP 94/50
[2020-05-04] MEDS: Ferrous Sulfate 325 MG TAB PO SCH ×2 (08:50→08:54)
[2020-05-04] MEDS: Docusate Calcium (SURFAK) 240 MG CAP PO SCH (08:54)
== END 2020-05-04 19:09 | disposition home or self-care (01) | DRG 788 ==
LOC: L&D 05:42 → 3SW 10:46
PROVIDERS: ADMIT Family Medicine; ATTEND Family Medicine
PROC: 10D00Z1 Extraction of Products of Conception, Low, Open Approach (ICD-10-PCS; principal; 2020-05-02)
DX: O34.211 Maternal care for low transverse scar from previous cesarean delivery (principal); Z20.828 Contact with and (suspected) exposure to other viral communicable diseases; O99.62 Diseases of the digestive system complicating childbirth; K66.0 Peritoneal adhesions (postprocedural) (postinfection); O99.02 Anemia complicating childbirth; D64.9 Anemia, unspecified; O24.429 Gestational diabetes mellitus in childbirth, unspecified control; Z3A.39 39 weeks gestation of pregnancy; Z37.0 Single live birth
CPT/HCPCS: 36415; 51702; 80053; 85027; 86780; 86850; 86900; 86901; 87340; J1885; J2175; J2270; J2310; J2405; J3490; Q0163

== ENCOUNTER 2020-10-11 15:58 | Emergency (ER) | payer OTHER ==
[2020-10-11] MEDS ORDERED: Lidocaine 1% w/Epinephrine 1:100K 20 ML VIAL ONE ×2 (16:30)
[2020-10-11] MEDS ORDERED: Bacitracin 1 PK ONE (17:40)
== END 2020-10-11 17:50 | disposition home or self-care (01) ==
LOC: ERS 15:58
DX: S81.812A Laceration without foreign body, left lower leg, initial encounter (principal); S81.811A Laceration without foreign body, right lower leg, initial encounter; S91.311A Laceration without foreign body, right foot, initial encounter; S91.312A Laceration without foreign body, left foot, initial encounter; X99.0XXA Assault by sharp glass, initial encounter
CPT/HCPCS: 12004

== ENCOUNTER 2020-10-26 13:48 | Emergency (ER) | payer OTHER | END 2020-10-26 14:49 | disposition left against medical advice (07) | LOC: ERS 13:48 | DX: Z53.21 Procedure and treatment not carried out due to patient leaving prior to being seen by health care provider (principal) ==

== ENCOUNTER 2020-10-27 14:27 | Emergency (ER) | payer OTHER | END 2020-10-27 16:15 | disposition home or self-care (01) | LOC: ERS 14:27 | DX: S91.312D Laceration without foreign body, left foot, subsequent encounter (principal); S91.311D Laceration without foreign body, right foot, subsequent encounter; X58.XXXD Exposure to other specified factors, subsequent encounter ==

== ENCOUNTER 2021-03-24 10:55 | Outpatient (CLI) | payer OTHER ==
[2021-03-24 13:32] LABS: #Eosinphils 0.1 10x3/uL (0.0-0.5); #Monocytes 0.6 10x3/uL (0.0-1.1); #Neutrophils 4.4 10x3/uL (1.5-8.4); %Basophils 0.4 % (0.0-2.0); %Lymphocytes 33.3 % (18.0-47.0); %Monocytes 7.5 % (0.0-10.0); %Neutrophils 57.7 % (40.0-75.0); Mean Corpuscular HGB CONC 30.8 g/dL (32.0-36.0); Mean Corpuscular Volume 84.4 fl (81.6-98.3); Mean Platelet Volume 8.8 fl (7.4-10.4); Platelet Count 386 10x3/uL (150-450); RBC Distribution Width 12.9 % (11.5-14.5); Red Blood Cell (RBC) Count 4.61 10x6/uL (3.90-5.03); White Blood Cell (WBC) Count 7.6 10x3/uL (3.5-10.5)
[2021-03-24 13:46] LABS: BHCG - Serum Negative (NEGATIVE); Pregs Control Background? CLEAR/WHITE (CLR/WHITE); Pregs Control Bar Appear? YES (CONTROL BAR)
[2021-03-24 13:50] LABS: ALT (SGPT) 23 U/L (8-55); AST (SGOT) 16 U/L (5-34); Albumin 4.5 g/dL (3.5-5.0); Alkaline Phosphatase 138 U/L (40-110); Anion Gap 14 mmol/L (10-20); BUN (Urea Nitrogen) 10 mg/dL (7.0-18.7); Bilirubin, Total 0.5 mg/dL (0.2-1.2); Calc. Creatinine Clearance 0 mL/min (70-130); Calcium 9.5 mg/dL (7.8-10.44); Carbon Dioxide 24 mmol/L (22-29); Chloride 108 mmol/L (98-107); Globulin 3.1 g/dL (2.4-3.5); Glucose 75 mg/dL (70-105); Potassium 4.3 mmol/L (3.5-5.1); Protein, Total 7.6 g/dL (6.0-8.3); Sodium 142 mmol/L (136-145)
[2021-03-25 14:28] LABS: SARS-CoV-2 PCR by NAA Not Detected (NotDetected)
== END 2021-03-24 10:56 | disposition home or self-care (01) ==
LOC: LABBT 10:55
PROVIDERS: ATTEND Specialist
DX: Z01.812 Encounter for preprocedural laboratory examination (principal); K80.10 Calculus of gallbladder with chronic cholecystitis without obstruction; Z20.822 Contact with and (suspected) exposure to COVID-19
CPT/HCPCS: 80053; 84703; 85025; U0003; U0005

== ENCOUNTER 2021-03-29 10:02 | Day surgery (SDC) | payer OTHER ==
[2021-03-28 12:07] VITALS: BMI 31.1
[2021-03-29] MEDS ORDERED: ceFAZolin Sodium (SDC) 2 GM/100 ML BAG ONE (11:09)
[2021-03-29] MEDS ORDERED: Ketorolac Tromethamine 30 MG/ML VIAL ONE (11:09)
[2021-03-29] MEDS ORDERED: Midazolam HCl 2 mg/2 ml Vial ONE (11:26)
[2021-03-29] MEDS ORDERED: Levofloxacin 500 mg/D5W 100 ml Premix Bag ONE (11:27)
[2021-03-29] MEDS ORDERED: Bupivacaine 0.25% HCL 30 ML VIAL ONE (12:38)
[2021-03-29] MEDS ORDERED: Lidocaine 1% w/Epinephrine 1:100K 20 ML VIAL ONE (12:38)
[2021-03-29] MEDS ORDERED: Promethazine HCl 25 MG/ML VIAL ONE (12:41)
[2021-03-29] MEDS ORDERED: Fentanyl 100 MCG/2 ML VIAL ONE ×2 (12:41→14:39)
[2021-03-29] MEDS ORDERED: HYDROmorphone 2 MG/ML VIAL ONE (12:53)
[2021-03-29] MEDS ORDERED: PHENYLEPHRINE-NS 100 MCG/ML 10 ML SYRINGE ONE (12:58)
[2021-03-29] MEDS ORDERED: Lidocaine 1% PF 5 ML VIAL ONE (12:58)
[2021-03-29] MEDS ORDERED: Rocuronium Bromide 10 MG/ML (10ML VIAL) ONE (12:58)
[2021-03-29] MEDS ORDERED: Dexamethasone 20 MG/5 ML VIAL ONE (12:58)
[2021-03-29] MEDS ORDERED: PROPOFOL 200 MG/20 ML VIAL ONE (12:58)
[2021-03-29] MEDS ORDERED: ePHEDrine 50 MG/ML VIAL ONE (12:58)
[2021-03-29] MEDS ORDERED: Glycopyrrolate 0.2 MG/ML 5 ML SYRINGE ONE (12:58)
[2021-03-29] MEDS ORDERED: Ondansetron PF 4 MG/2 ML Vial ONE (12:58)
[2021-03-29] MEDS ORDERED: HYDROcodone/Acetaminophen 5/325 mg Tablet ONE (16:19)
== END 2021-03-29 17:15 | disposition home or self-care (01) ==
LOC: SDC 10:02
PROVIDERS: ATTEND Specialist
PROC: 0FT44ZZ Resection of Gallbladder, Percutaneous Endoscopic Approach (ICD-10-PCS; principal; 2021-03-29)
DX: K80.10 Calculus of gallbladder with chronic cholecystitis without obstruction (principal)
CPT/HCPCS: 88304; J0690; J1100; J1170; J1885; J1956; J2250; J2405; J2550; J2704; J3010; J3490; S0020